=== PATIENT | female | born 1960 | race Caucasian/White ===

== ENCOUNTER 2020-11-07 08:48 | Outpatient (CLI) | payer BC, SELFPAY ==
--- NOTE | ~2020-11-07 | US_ITS ---
EXAMINATION: US art doppler w press LE ESTEPHANIA DATE: 11/07/2020 13:14 CDT INDICATION: Lower extremity decreased blood flow TECHNIQUE: Segmental pressures and plethysmographic and Doppler waveforms of the brachial and lower e xtremity arteries were obtained. COMPARISON: None. FINDINGS: Right and left brachial artery pressures of 138 mm Hg and 146 mm Hg, respectively, are concordant (no rmal difference <= 30 mmHg). The right high-thigh pressure index is 0.98 (normal > 1.2). The right ankle-brachial index (JESE) is 1 .01 (normal >= 0.9-1.0). The right great toe-brachial index (TBI) is 0.69 (normal >= 0.60). The right lower extremity segmental pressure gradients are normal (normal gradients <= 20-30 mmHg between mckenna cent levels on the same leg or the same levels on the two legs). Arterial Doppler waveforms are bipha sic. The left high-thigh pressure index is 1.07. The left JESE is 1.09. The left TBI is 0.75. The left lowe r extremity segmental pressure gradients are normal. Arterial Doppler waveforms are biphasic. IMPRESSION: 1. Normal bilateral ankle and toe brachial indices. Reviewed, dictated and finalized at location A.
== END 2020-11-07 08:49 | disposition home or self-care (01) ==
PROVIDERS: PCP Internal Medicine; Visit Provider Internal Medicine
DX: I73.9 Peripheral vascular disease, unspecified (principal)
CPT/HCPCS: 93923